=== PATIENT | male | born 1990 | race Native Hawaiian/Other Pacific Islander ===

== ENCOUNTER 2018-07-06 11:16 | Emergency (ER) | payer SELFPAY ==
[2018-07-06] MEDS ORDERED: Sodium Chloride 0.9% 1,000 ML IV ONE ×2 (11:38→13:10)
[2018-07-06 11:49] LABS: BASO % 0.5 % (0.0-2.0); EOS # 0.1 K/uL (0.0-0.7); EOS % 0.6 % (0.0-4.0); HEMOGLOBIN 14.6 g/dL (12.0-18.0); LYMPH # 1.2 K/uL (1.0-4.3); LYMPH % 13.9 % (20.0-40.0); MEAN CELL VOLUME 90.8 fL (80.0-94.0); MEAN CORPUSCULAR HEMOGLOBIN 32.3 pg (27.0-31.0); MEAN CORPUSCULAR HGB CONC 35.6 g/dL (33.0-37.0); MEAN PLATELET VOLUME 7.4 fL (7.2-11.7); MONO # 0.6 K/uL (0.0-0.8); MONO % 6.8 % (0.0-10.0); NEUT # 6.9 K/uL (1.8-7.0); NEUT % 78.2 % (50.0-75.0); RBC 4.52 Mil/uL (4.40-5.90); RED CELL DISTRIBUTION WIDTH 12.7 % (11.5-14.5); WHITE BLOOD COUNT 8.9 K/uL (4.8-10.8)
[2018-07-06 12:06] LABS: ALB/GLOB RATIO 1.5 (1.0-2.1); ALBUMIN 4.8 g/dL (3.5-5.0); ALT/SGPT 36 U/L (21-72); AST/SGOT 41 U/L (17-59); BLOOD UREA NITROGEN 6 mg/dL (9-20); CALCIUM 9.3 mg/dl (8.6-10.4); GFR NON-AFRICAN AMERICAN > 60
--- NOTE | 2018-07-06 12:20 | CT ---
Date of service: 07/06/2018 PROCEDURE: CT HEAD WITHOUT CONTRAST. HISTORY: R/O Bleed. Palpitation. Headache. COMPARISON: None available. TECHNIQUE: Axial computed tomography images were obtained through the head/brain without intravenous contrast. Radiation dose: Total exam DLP = 1057.82 mGy-cm. This CT exam was performed using one or more of the following dose reduction techniques: Automated exposure control, adjustment of the mA and/or kV according to patient size, and/or use of iterative reconstruction technique. FINDINGS: HEMORRHAGE: No intracranial hemorrhage. BRAIN: No mass effect or edema. No atrophy or chronic microvascular ischemic changes. Punctate hypodensity in the left basal ganglia on series 4, image 24 suggestive for a prominent perivascular space. VENTRICLES: Unremarkable. No hydrocephalus. CALVARIUM: Unremarkable. PARANASAL SINUSES: Mild mucosal thickening of the maxillary sinuses. MASTOID AIR CELLS: Unremarkable as visualized. No inflammatory changes. OTHER FINDINGS: None. IMPRESSION: No acute intracranial abnormality. Punctate hypodensity in the left basal ganglia on series 4, image 24 suggestive for a prominent perivascular space. Mild mucosal thickening of the maxillary sinuses. If symptoms persists, consider correlation with MRI.
[2018-07-06 12:30] LABS: BARBITURATES, UR NEGATIVE (NEGATIVE); BENZODIAZEPINES, UR NEGATIVE (NEGATIVE); OPIATES, UR NEGATIVE (NEGATIVE); PHENCYCLIDINE, UR NEGATIVE (NEGATIVE)
--- NOTE | 2018-07-06 13:57 | C.PDOC ---
History Of Present Illness 28 year old male presents to the ED complaining of palpitations and coughing since last night. Admits to drinking 2-3 beers. Denies any chest pain, fever chills, or shortness of breath. Denies any recent evaluations. Also complains of feeling dizzy early this morning. Time Seen by Provider: 07/06/18 11:25 Chief Complaint (Nursing): Cough, Cold, Congestion History Per: Patient History/Exam Limitations: no limitations Onset/Duration Of Symptoms: Hrs Current Symptoms Are (Timing): Still Present Past Medical History Reviewed: Historical Data, Nursing Documentation, Vital Signs Vital Signs: Last Vital Signs Temp 99.1 F 07/06/18 11:25 Pulse 110 H 07/06/18 11:25 Resp 16 07/06/18 11:25 BP 136/83 07/06/18 11:25 Pulse Ox 99 07/06/18 11:25 - Medical History PMH: No Chronic Diseases Surgical History: No Surg Hx Family History: States: No Known Family Hx - Social History Hx Alcohol Use: Yes Hx Substance Use: No - Immunization History Hx Tetanus Toxoid Vaccination: No Hx Influenza Vaccination: No Hx Pneumococcal Vaccination: No Review Of Systems Except As Marked, All Systems Reviewed And Found Negative. Constitutional: Negative for: Fever, Chills Cardiovascular: Positive for: Palpitations. Negative for: Chest Pain Respiratory: Positive for: Cough. Negative for: Shortness of Breath Neurological: Positive for: Dizziness Physical Exam - Physical Exam Appears: Non-toxic Skin: Warm, Dry Head: Normacephalic Eye(s): bilateral: Normal Inspection Neck: Supple Chest: Symmetrical, No Tenderness Cardiovascular: Rhythm Regular Respiratory: Normal Breath Sounds, No Rales, No Rhonchi, No Wheezing Gastrointestinal/Abdominal: Soft, No Tenderness Extremity: Normal ROM, No Pedal Edema Extremity: Bilateral: Atraumatic Neurological/Psych: Oriented x3, Normal Speech Gait: Steady ED Course And Treatment - Laboratory Results Result Diagrams: 07/06/18 11:46 07/06/18 11:46 ECG: Viewed By Me ECG Rhythm: Sinus Tachycardia Rate From EC O2 Sat by Pulse Oximetry: 99 (RA) Pulse Ox Interpretation: Normal - CT Scan/US CT Head Other Rad Studies (CT/US): Read By Radiologist, Radiology Report Reviewed CT/US Interpretation: Accession No. : [id number]. Patient Name / ID : PRASANNA DOAN / [id number]. Exam Date : 07/06/2018 12:01:00 ( Approved ). Abril reece Comment : Sex / Age : M / 28Y. Creator : Julio Jennings MD. Dictator : Julio Jennings MD. It Assistant : Conventional Underwriter : Julio Jennings MD. Approver2 : Report Date : 07/06/2018 12:16:49. My Comment : . Date of service: 07/06/2018. PROCEDURE: CT HEAD WITHOUT CONTRAST. HISTORY: R/O Bleed. Palpitation. Headache. COMPARISON: None available. TECHNIQUE: Axial computed tomography images were obtained through the head/brain without intravenous contrast. Radiation dose: Total exam DLP = 1 057.82 mGy-cm. This CT exam was performed using one or more of the following dose reduction techniques: Automated exposure control, adjustment of the mA and/or kV according to patient size, and/or use of iterative reconstruction technique. FINDINGS: HEMORRHAGE: No intracranial hemorrhage. BRAIN: No mass effect or edema. No atrophy or chronic microvascular ischemic changes. Punctate hypodensity in the left basal ganglia on series 4, image 24 suggestive for a prominent perivascular space. VENTRICLES: Unremarkable. No hydrocephalus. CALVARIUM: Unremarkable. PARANASAL SINUSES: Mild mucosal thickening of the maxillary sinuses. MASTOID AIR CELLS: Unremarkable as visualized. No inflammatory changes. OTHER FINDINGS: None. IMPRESSION: No acute intracranial abnormality. Punctate hypodensity in the left basal ganglia on series 4, image 24 suggestive for a prominent perivascular space. Mild mucosal thickening of the maxillary sinuses. If symptoms persists, consider correlation with MRI. Medical Decision Making Medical Decision Making: Plan - Head CT - Labwork - IV Fluids Disposition - Disposition Referrals: [facility], [Non-Staff] - Disposition: HOME/ ROUTINE Disposition Time: 13:30 Condition: GOOD Additional Instructions: FRANKI PRASANNA, thank you for letting us take care of you today. The emergency medical care you received today was directed at your acute symptoms. If you were prescribed any medication, please fill it and take as directed. It may take several days for your symptoms to resolve. Return to the Emergency Department if your symptoms worsen, do not improve, or if you have any other problems. Please contact your doctor or call one of the physicians/clinics you have been referred to that are listed on the Patient Visit Information form that is included in your discharge packet. Bring any paperwork you were given at d ischarge with you along with any medications you are taking to your follow up visit. Our treatment cannot replace ongoing medical care by a primary care provider outside of the emergency department. Thank you for allowing the [facility] team to be part of your care today. Follow up with your primary care doctor this week for re-evaluation and further management. Instructions: Dehydration, Adult (DC), Dizziness, Nonvertigo, (DC) Forms: [employer] [facility] (Greek) - Clinical Impression Clinical Impression: Dehydration - Scribe Statement The provider has reviewed the documentation as recorded by the Leonaibaura Viera All medical record entries made by the Leonaibaura were at my direction and personally dictated by me. I have reviewed the chart and agree that the record accurately reflects my personal performance of the history, physical exam, medical decision making, and the department course for this patient. I have also personally directed, reviewed, and agree with the discharge instructions and disposition.
[2018-07-06 14:24] VITALS: BP 127/87; PULSE 105; RESP 12; TEMP 98.2
[2018-07-06 18:40] VITALS: O2SAT 99
--- NOTE | 2018-07-08 19:33 | CARD ---
APPROVED REPORT Date of service: 07/06/2018 EKG Measurement Heart [id number] <Conclusion> Sinus tachycardia Otherwise normal ECG
== END 2018-07-06 15:08 | disposition home or self-care (01) ==
LOC: C.ER 11:16
DX: E86.0 Dehydration (principal)
CPT/HCPCS: 70450; 80053; 82948; 85025; 87804; 93005; 96360; 96361; 99285; G0480; J7030

== ENCOUNTER 2018-07-06 20:46 | Emergency (ER) | payer SELFPAY ==
[2018-07-06 20:59] VITALS: BP 122/83; PULSE 90; RESP 20; TEMP 97.9; O2SAT 99
--- NOTE | 2018-07-06 21:43 | C.PDOC ---
History Of Present Illness 28 y/o male presents to the ED with complaints of anxiety and palpitations, onset this afternoon after arriving home. Patient was seen earlier today for the same complaint, and discharged home. Earlier today patient denied daily alcohol use. He now admits to drinking three 16oz beers daily. States he is trying to quit cold turkey. Patient otherwise denies any chest pain, abdominal pain, nausea, vomiting, shakes, or other associated symptoms. Time Seen by Provider: 07/06/18 21:15 Chief Complaint (Nursing): Anxiety History Per: Patient History/Exam Limitations: no limitations Onset/Duration Of Symptoms: Hrs Current Symptoms Are (Timing): Still Present Suicide/Self Injury Attempted (Context): None Modifying Factor(s): Alcohol Associated Symptoms: Anxiety. denies: Suicidal Thoughts, Suicidal Plan Involuntary Hold By: None Past Medical History Reviewed: Historical Data, Nursing Documentation, Vital Signs Vital Signs: Last Vital Signs Temp 97.9 F 07/06/18 20:54 Pulse 90 07/06/18 20:54 Resp 20 07/06/18 20:54 BP 122/83 07/06/18 20:54 Pulse Ox 99 07/06/18 20:54 - Medical History PMH: No Chronic Diseases Surgical History: No Surg Hx Family History: States: No Known Family Hx - Social History Hx Tobacco Use: Yes Hx Alcohol Use: Yes Hx Substance Use: No - Immunization History Hx Tetanus Toxoid Vaccination: No Hx Influenza Vaccination: No Hx Pneumococcal Vaccination: No Review Of Systems Except As Marked, All Systems Reviewed And Found Negative. Constitutional: Negative for: Fever, Chills Eyes: Negative for: Vision Change Cardiovascular: Positive for: Palpitations. Negative for: Chest Pain, Light Headedness Respiratory: Negative for: Shortness of Breath Gastrointestinal: Negative for: Nausea, Vomiting, Abdominal Pain, Diarrhea Neurological: Negative for: Weakness, Numbness Psych: Positive for: Anxiety. Negative for: Psychosis, Suicidal ideation Physical Exam - Physical Exam Appears: Non-toxic, No Acute Distress, Other (Anxious appearing) Skin: Normal Color, Warm, Dry Head: Atraumatic, Normacephalic Eye(s): bilateral: PERRL, EOMI, Other (Pupillary mydriasis) Nose: Normal Oral Mucosa: Moist Chest: Symmetrical Cardiovascular: Rhythm Regular, No Murmur Respiratory: Normal Breath Sounds, No Rales, No Rhonchi, No Wheezing Gastrointestinal/Abdominal: Soft, No Tenderness, No Distention Extremity: Bilateral: Atraumatic, Normal Color And Temperature, Normal ROM Neurological/Psych: Oriented x3, Other (Pressured speech) Gait: Steady ED Course And Treatment O2 Sat by Pulse Oximetry: 99 (RA) Pulse Ox Interpretation: Normal Medical Decision Making Medical Decision Making: alcohol withdrawal vs anxiety drinking 3x 16 oz beers/day and "trying to quit" earlier today eval wnl EKG now HR 80's Final Impression: pt much improved with Librium LOW susp of imminent szr at this time cautioned to taper off etoh gradually. outpatient assistance referred. Disposition Doctor Will See Patient In The: Office Counseled Patient/Family Regarding: Studies Performed, Diagnosis - Disposition Referrals: Alcoholics Anonymous [Outside] [facility] [Outside] [email or web address] [Outside] [facility] [Outside] [facility] [Outside] Disposition: HOME/ ROUTINE Disposition Time: 21:43 Condition: GOOD Additional Instructions: call for assistance with your alcohol abuse issues Taper down your alcohol use slowly over a few days Seek AA Seek referral for pre-screen Alcohol Detox programs Prescriptions: Ondansetron ODT [Zofran ODT] 4 mg PO Q8H PRN #6 odt PRN Reason: Nausea/Vomiting Instructions: Alcohol Withdrawal, Alcohol Abuse and Alcoholism (DC) Forms: [employer] (Greenlandic) - Clinical Impression Clinical Impression: Alcohol withdrawal - Scribe Statement The provider has reviewed the documentation as recorded by the Scribe (Magnolia Santos) Provider Attestation: All medical record entries made by the Scribe were at my direction and personally dictated by me. I have reviewed the chart and agree that the record accurately reflects my personal performance of the history, physical exam, medical decision making, and the department course for this patient. I have also personally directed, reviewed, and agree with the discharge instructions and disposition.
--- NOTE | 2018-07-08 19:33 | CARD ---
APPROVED REPORT Date of service: 07/06/2018 EKG Measurement Heart [id number] <Conclusion> Normal sinus rhythm Normal ECG
== END 2018-07-06 22:00 | disposition home or self-care (01) ==
LOC: C.ER 20:46
DX: F10.239 Alcohol dependence with withdrawal, unspecified (principal)

== ENCOUNTER 2018-10-25 18:14 | Emergency (ER) | payer SELFPAY ==
[2018-10-25] MEDS ORDERED: Sodium Chloride 0.9% 1,000 ML IV ONE (18:47)
[2018-10-25 19:02] LABS: BASO # 0.1 K/uL (0.0-0.2); BASO % 1.1 % (0.0-2.0); EOS # 0.1 K/uL (0.0-0.7); EOS % 1.2 % (0.0-4.0); HEMOGLOBIN 14.3 g/dL (12.0-18.0); LYMPH # 2.2 K/uL (1.0-4.3); LYMPH % 44.4 % (20.0-40.0); MEAN CELL VOLUME 87.4 fL (80.0-94.0); MEAN CORPUSCULAR HEMOGLOBIN 29.8 pg (27.0-31.0); MEAN CORPUSCULAR HGB CONC 34.1 g/dL (33.0-37.0); MEAN PLATELET VOLUME 7.4 fL (7.2-11.7); MONO # 0.4 K/uL (0.0-0.8); MONO % 7.2 % (0.0-10.0); NEUT # 2.3 K/uL (1.8-7.0); NEUT % 46.1 % (50.0-75.0); NRBC % 0.1 % (0.0-2.0); RBC 4.8 Mil/uL (4.40-5.90); RED CELL DISTRIBUTION WIDTH 12.8 % (11.5-14.5)
[2018-10-25] MEDS ORDERED: Sodium Chloride 0.9% 1,000 ML ONE (19:03)
[2018-10-25 19:12] LABS: ALB/GLOB RATIO 1.8 (1.0-2.1); ALT/SGPT 11 U/L (21-72); AST/SGOT 21 U/L (17-59); BLOOD UREA NITROGEN 6 mg/dL (9-20); CALCIUM 9.1 mg/dl (8.6-10.4); GFR NON-AFRICAN AMERICAN > 60
[2018-10-25 19:21] LABS: BARBITURATES, UR NEGATIVE (NEGATIVE); BENZODIAZEPINES, UR NEGATIVE (NEGATIVE); OPIATES, UR NEGATIVE (NEGATIVE); PHENCYCLIDINE, UR NEGATIVE (NEGATIVE)
[2018-10-25 20:06] VITALS: BP 137/78; PULSE 78; RESP 19; TEMP 98.9; O2SAT 98
--- NOTE | 2018-10-25 22:26 | C.PDOC ---
History Of Present Illness 28 year old male presents to the ED for evaluation of mild headache and body aches which began one day ago. Patient admits to occasionally drinking. He has not taken any medicine for his pain and denies fever, chills, neck stiffness, or worst headache of his life. Time Seen by Provider: 10/25/18 18:31 Chief Complaint (Nursing): Headache History Per: Patient History/Exam Limitations: no limitations Onset/Duration Of Symptoms: Hrs Current Symptoms Are (Timing): Still Present Quality: Aching Additional History Per: Patient Past Medical History Reviewed: Historical Data, Nursing Documentation, Vital Signs Vital Signs: Last Vital Signs Temp 98.9 F 10/25/18 20:05 Pulse 78 10/25/18 20:05 Resp 19 10/25/18 20:05 BP 137/78 10/25/18 20:05 Pulse Ox 98 10/25/18 20:05 - Medical History PMH: No Chronic Diseases Surgical History: No Surg Hx Family History: States: Unknown Family Hx - Social History Hx Tobacco Use: Yes Hx Alcohol Use: Yes Hx Substance Use: No - Immunization History Hx Tetanus Toxoid Vaccination: No Hx Influenza Vaccination: No Hx Pneumococcal Vaccination: No Review Of Systems Constitutional: Negative for: Fever, Chills Musculoskeletal: Positive for: Other (generalized body aches ). Negative for: Neck Pain Neurological: Positive for: Headache (mild ) Physical Exam - Physical Exam Appears: Non-toxic, No Acute Distress Skin: Normal Color, Warm, Dry Head: Atraumatic, Normacephalic Eye(s): bilateral: Normal Inspection Oral Mucosa: Moist Tongue: No Other (tongue fasciculations) Neck: Normal ROM, Supple, No Other (neck stiffness ) Chest: Symmetrical, No Deformity, No Tenderness Cardiovascular: Rhythm Regular, No Murmur Respiratory: Normal Breath Sounds, No Rales, No Rhonchi, No Wheezing Extremity: Normal ROM, Capillary Refill (less than 2 seconds ) Neurological/Psych: Oriented x3, Normal Speech, Normal Cognition Gait: Steady ED Course And Treatment - Laboratory Results Result Diagrams: 10/25/18 18:57 10/25/18 18:57 Lab Results: Total Bilirubin 0.7 mg/dL (0.2-1.3) 10/25/18 18:57 AST 21 U/L (17-59) 10/25/18 18:57 ALT 11 U/L (21-72) L D 10/25/18 18:57 Alkaline Phosphatase 57 U/L (38-126) 10/25/18 18:57 Total Protein 7.8 g/dL (6.3-8.3) 10/25/18 18:57 Albumin 5.0 g/dL (3.5-5.0) 10/25/18 18:57 Globulin 2.8 gm/dL (2.2-3.9) 10/25/18 18:57 Albumin/Globulin Ratio 1.8 (1.0-2.1) 10/25/18 18:57 O2 Sat by Pulse Oximetry: 98 Pulse Ox Interpretation: Normal Medical Decision Making Medical Decision Making: Impression: 28 year old male with mild headache and body aches Plan: * bloodwork * Toradol IVP * Ativan PO * Zofran IVP * IV Fluids * reassess and disposition Progress: Bloodwork ordered and reviewed. Toradol IVP, Ativan PO, Zofran IVP and IV Fluids given. Disposition - Disposition Referrals: [facility] [Outside] [facility] [Outside] Disposition: HOME/ ROUTINE Disposition Time: 19:25 Condition: IMPROVED Additional Instructions: FRANKI MIMS, thank you for letting us take care of you today. The emergency medical care you received today was directed at your acute symptoms. If you were prescribed any medication, please fill it and take as directed. It may take several days for your symptoms to resolve. Return to the Emergency Department if your symptoms worsen, do not improve, or if you have any other problems. Please contact your doctor or call one of the physicians/clinics you have been referred to that are listed on the Patient Visit Information form that is included in your discharge packet. Bring any paperwork you were given at discharge with you along with any medications you are taking to your follow up visit. Our treatment cannot replace ongoing medical care by a primary care provider outside of the emergency department. Thank you for allowing the [facility] team to be part of your care today. You need to cut down on the amount of alcohol you drink. Follow up with our clinic this week for outpatient care. Prescriptions: Ondansetron ODT [Zofran ODT] 4 mg PO Q8 PRN #20 odt PRN Reason: Nausea/Vomiting Instructions: Alcohol Use - When Is Drinking a Problem? Forms: [employer] (Luxembourgish) - Clinical Impression Clinical Impression: Headache - Scribe Statement The provider has reviewed the documentation as recorded by the Scribe (Waleska Brown) Provider Attestation: All medical record entries made by the Scribe were at my direction and personally dictated by me. I have reviewed the chart and agree that the record accurately reflects my personal performance of the history, physical exam, medical decision making, and the department course for this patient. I have also personally directed, reviewed, and agree with the discharge instructions and disposition.
== END 2018-10-25 20:06 | disposition home or self-care (01) ==
LOC: C.ER 18:14
DX: R51 Headache (principal)
CPT/HCPCS: 80053; 85025; 96361; 96374; 96375; 99284; G0480; J1885; J2405; J7030

== ENCOUNTER 2018-10-26 23:51 | Emergency (ER) | payer SELFPAY ==
[2018-10-27 00:17] VITALS: RESP 18; O2SAT 99
--- NOTE | 2018-10-27 01:19 | C.PDOC ---
History Of Present Illness 28 year old male, whose past medical history includes alcohol abuse and anxiety, presents to the ED for evaluation of headache which began two days ago. Patient describes the headache as a tightness and states it is circumferential. 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 Patient was evaluated in this ED yesterday for the same, underwent a workup, consisting of bloodwork, which was normal and was discharged home after IVF and pain medication. Patient returns to the ED today because his headache persists, and he wants to know if his symptoms are related to his computer screen exposure. Patient also states he has been feeling anxious. He states his last drink was two days ago, when he drank 200ml of rum. Patient states he was been drinking 2-3 times per week for the last 3 weeks. Patient had detox in June, but is not requesting detox today. Patient denies SI, HI, hallu cinations, seizures, tremors, hallucinations, vision change, dizziness, recent trauma/injury, nausea, vomiting, neck pain/stiffness, fever, numbness, weakness, paresthesias, or any other associated complaints. Time Seen by Provider: 10/27/18 01:17 Chief Complaint (Nursing): Headache History Per: Patient History/Exam Limitations: no limitations Onset/Duration Of Symptoms: Days (2) Current Symptoms Are (Timing): Still Present Quality: "Pain" Additional History Per: Patient Past Medical History Reviewed: Historical Data, Nursing Documentation, Vital Signs Vital Signs: Last Vital Signs Temp 98.5 F 10/27/18 00:10 Pulse 77 10/27/18 00:10 Resp 18 10/27/18 00:10 BP 103/68 10/27/18 00:10 Pulse Ox 99 10/27/18 00:10 - Medical History PMH: No Chronic Diseases Surgical History: No Surg Hx Family History: States: Unknown Family Hx - Social History Hx Tobacco Use: Yes Hx Alcohol Use: Yes Hx Substance Use: No - Immunization History Hx Tetanus Toxoid Vaccination: No Hx Influenza Vaccination: No Hx Pneumococcal Vaccination: No Review Of Systems Constitutional: Negative for: Fever, Chills Eyes: Negative for: Vision Change ENT: Negative for: Ear Pain, Nose Congestion, Throat Pain, Throat Swelling Cardiovascular: Negative for: Chest Pain, Palpitations, Light Headedness Respiratory: Negative for: Cough, Shortness of Breath Gastrointestinal: Negative for: Nausea, Vomiting, Abdominal Pain Genitourinary: Negative for: Dysuria, Frequency Musculoskeletal: Negative for: Neck Pain, Back Pain Skin: Negative for: Rash Neurological: Positive for: Headache. Negative for: Weakness, Numbness, Seizures, Altered Mental Status, Dizziness Physical Exam - Physical Exam Appears: Well, Non-toxic, No Acute Distress, Other (anxious ) Skin: Normal Color, Warm, Dry Head: Atraumatic, Normacephalic Eye(s): bilateral: Normal Inspection, PERRL, EOMI Ear(s): Bilateral: Normal Nose: Normal Oral Mucosa: Moist Throat: Normal Neck: Normal, Normal ROM, No Decreased ROM, Supple, No Other (no meningeal signs) Lymphatic: Normal Exam Chest: Symmetrical, No Deformity, No Tenderness Cardiovascular: Rhythm Regular, No Murmur Respiratory: Normal Breath Sounds, No Rales, No Rhonchi, No Wheezing Gastrointestinal/Abdominal: Soft, No Tenderness Back: Normal Inspection, No CVA Tenderness Extremity: Normal ROM, Capillary Refill (less than 2 seconds ) Extremity: Bilateral: Atraumatic, Normal Color And Temperature, Normal ROM Pulses: Left Radial: Normal, Right Radial: Normal Neurological/Psych: Oriented x3, Normal Speech, Normal Cognition, Normal Motor, Normal Sensation Gait: Steady ED Course And Treatment O2 Sat by Pulse Oximetry: 99 (on RA ) Pulse Ox Interpretation: Normal Medical Decision Making Medical Decision Making: On initial exam, patient appears anxious, speaking quickly, asking frequent questions. Denies SI, HI, hallucinations. Plan: Tylenol PO and Ativan PO given. On reassessment, patient is resting comfortably, showing no signs of distress and is requesting to be discharged home, states he feels much better and reports resolution of headache. Diagnostic testing results and plan of care discussed with patient. Strict instructions given regarding prescription use, importance of followup, and signs/symptoms to return to ER including weakness, numbness, paresthesias, or any other new/worsening symptoms. Pt verbalized understanding of discussion. Patient is A&Ox3, ambulating with steady gait, with vital signs stable for discharge. Disposition - Disposition Referrals: [facility] [Outside] [facility] [Outside] Disposition: HOME/ ROUTINE Disposition Time: 02:20 Condition: IMPROVED Additional Instructions: Followup with the clinic within 2 days Followup with [facility] within 2 days Return to ER with any new/worsening symptoms Instructions: Headache, Adult, Anxiety, Adult (DC) Forms: General Discharge Instructions, [facility] (Swedish), Work Excuse - Clinical Impression Clinical Impression: Headache, Anxiety - PA / LICENSED PSYCHOLOGIST MANAGER / Resident Statement MD/DO has reviewed & agrees with the documentation as recorded. - Scribe Statement The provider has reviewed the documentation as recorded by the Scribe (Waleska Brown) All medical record entries made by the Scribe were at my direction and personally dictated by me. I have reviewed the chart and agree that the record accurately reflects my personal performance of the history, physical exam, medical decision making, and the department course for this patient. I have also personally directed, reviewed, and agree with the discharge instructions and disposition.
[2018-10-27 02:29] VITALS: BP 116/75; PULSE 75; TEMP 98.2
== END 2018-10-27 02:29 | disposition home or self-care (01) ==
LOC: SUPCPDRO 23:51 → C.ER 23:51
DX: R51 Headache (principal); F41.9 Anxiety disorder, unspecified; Z72.0 Tobacco use

== ENCOUNTER 2019-01-19 16:56 | Emergency (ER) | payer OTHER ==
[2019-01-19 17:14] VITALS: BP 110/71; PULSE 64; RESP 18; TEMP 98.6; O2SAT 100
--- NOTE | 2019-01-19 17:42 | C.PDOC ---
History Of Present Illness 28 y/o male,w/PMhx of anxiety, presents to the ER complaining of headache which began while patient was at work in the morning today.Patient states the pain radiates down the spine. Patient reports the headache caused him to stop working. Patient notes he took Tylenol at 11 am for the pain. He uses the computer for long periods of time at his job and thinks the headache may be related to his computer usage. He has some associated dizziness and nausea.Patient was evaluated for headache in [facility] ER in October 2018.Of note, patient has history of ETOH abuse. Otherwise, patient denies "thunderclap" or sudden onset, worst h/a of life, syncope, vision changes, neck pain/stiffness, CP,SOB, vomiting, tremors, and seizures. Of note, patient has history of ETOH abuse. He states that his last use was 2 nights ago. Time Seen by Provider: 01/19/19 17:16 Chief Complaint (Nursing): Headache History Per: Patient History/Exam Limitations: no limitations Onset/Duration Of Symptoms: Hrs Current Symptoms Are (Timing): Still Present Severity: Moderate Past Medical History Reviewed: Historical Data, Nursing Documentation, Vital Signs Vital Signs: Last Vital Signs Temp 98.6 F 01/19/19 17:12 Pulse 64 01/19/19 17:12 Resp 18 01/19/19 17:12 BP 110/71 01/19/19 17:12 Pulse Ox 100 01/19/19 17:12 Primary Care Provider: FAMILY PROVIDER,NO - Medical History PMH: Anxiety Surgical History: No Surg Hx Family History: States: No Known Family Hx - Social History Hx Tobacco Use: Yes Hx Alcohol Use: Yes Hx Substance Use: No - Immunization History Hx Tetanus Toxoid Vaccination: No Hx Influenza Vaccination: No Hx Pneumococcal Vaccination: No Review Of Systems Except As Marked, All Systems Reviewed And Found Negative. Constitutional: Negative for: Fever, Chills Cardiovascular: Negative for: Chest Pain Respiratory: Negative for: Shortness of Breath Gastrointestinal: Positive for: Nausea. Negative for: Vomiting, Abdominal Pain Musculoskeletal: Negative for: Neck Pain Neurological: Positive for: Headache, Dizziness Physical Exam - Physical Exam Appears: Non-toxic, No Acute Distress Skin: Normal Color, Warm, Dry Head: Atraumatic, Normacephalic Eye(s): bilateral: Normal Inspection, PERRL, EOMI, Other (no nystagmus) Nose: Normal Oral Mucosa: Moist Neck: No Midline Cervical Tenderness, Supple Chest: Symmetrical Cardiovascular: Rhythm Regular Respiratory: Normal Breath Sounds, No Rales, No Rhonchi, No Wheezing Extremity: Normal ROM Neurological/Psych: Oriented x3, Normal Speech, Normal Motor, Normal Sensation Gait: Steady ED Course And Treatment O2 Sat by Pulse Oximetry: 100 (RA) Pulse Ox Interpretation: Normal Medical Decision Making Medical Decision Making: Plan: --Motrin PO Updates: On re-evaluation, patient feels better. Patient still feels mildly anxious. Patient has been discharged with prescription for Atarax and instructed to follow up in [facility]. Disposition Counseled Patient/Family Regarding: Diagnosis, Need For Followup - Disposition Referrals: [facility] [Outside] [facility] [Outside] Disposition: HOME/ ROUTINE Disposition Time: 18:18 Condition: STABLE Additional Instructions: FRANKI MIMS, thank you for letting us take care of you today. Your provider was Franci Taylor MD and you were treated for BACK PAIN/HEADACHE. The emergency medical care you received today was directed at your acute symptoms. If you were prescribed any medication, please fill it and take as directed. It may take several days for your symptoms to resolve. Return to the Emergency Department if your symptoms worsen, do not improve, or if you have any other problems. Please contact your doctor or call one of the physicians/clinics you have been referred to that are listed on the Patient Visit Information form that is included in your discharge packet. Bring any paperwork you were given at discharge with you along with any medications you are taking to your follow up visit. Our treatment cannot replace ongoing medical care by a primary care provider outside of the emergency department. Thank you for allowing the [facility] team to be part of your care today. Prescriptions: hydrOXYzine HCl [Atarax] 50 mg PO QID PRN #20 tab PRN Reason: Anxiety Instructions: Anxiety, Adult (DC), Headache, Adult (DC) Forms: [employer] (Vietnamese), General Discharge Instructions - POA Present On Arrival: None - Clinical Impression Clinical Impression: Headache, Anxiety - Scribe Statement The provider has reviewed the documentation as recorded by the Prasanna Chaudhari Provider Attestation: All medical record entries made by the Scribe were at my direction and personally dictated by me. I have reviewed the chart and agree that the record accurately reflects my personal performance of the history, physical exam, medical decision making, and the department course for this patient. I have also personally directed, reviewed, and agree with the discharge instructions and disposition.
== END 2019-01-19 18:36 | disposition home or self-care (01) ==
LOC: C.ER 16:56
DX: R51 Headache (principal); F41.9 Anxiety disorder, unspecified